=== PATIENT | male | born 1975 | race American Indian/Alaskan Native ===

== ENCOUNTER 2020-11-15 15:28 | Emergency (ER) | payer SELFPAY ==
[2020-11-15 15:51] VITALS: BP 134/69
[2020-11-15] MEDS ORDERED: ASPIRIN 325 MG TAB PO ONE (15:51)
--- NOTE | 2020-11-15 16:21 | XRay Report ---
CHEST 2 VIEWS INDICATION / CLINICAL INFORMATION: Chest pain. Heart fluttering and numbness down the right arm. COMPARISON: None available. FINDINGS: SUPPORT DEVICES: None. HEART / MEDIASTINUM: No significant abnormality. LUNGS / PLEURA: No significant pulmonary or pleural abnormality. No pneumothorax. ADDITIONAL FINDINGS: No significant additional findings. IMPRESSION: 1. No acute findings. Signer Name: Adeel Copeland MD Signed: 11/15/2020 4:17 PM Workstation Name: [id number]
[2020-11-15 16:32] LABS: Basophils % (Auto) 0.7 % (0.0-1.8); Eosinophils # (Auto) 0.3 K/mm3 (0.0-0.4); Eosinophils % (Auto) 5.1 % (0.0-4.3); Hematocrit 46.6 % (35.5-45.6); Lymphocytes # (Auto) 1.7 K/mm3 (1.2-5.4); Lymphocytes % (Auto) 24.5 % (13.4-35.0); Mean Corpuscular HGB Conc 34 % (32-34); Mean Corpuscular Volume 99 fl (84-94); Monocytes # (Auto) 0.6 K/mm3 (0.0-0.8); Monocytes % (Auto) 8.2 % (0.0-7.3); Platelet Count 238 K/mm3 (140-440); Red Blood Count 4.71 M/mm3 (3.65-5.03); Red Cell Distribution Width 13.2 % (13.2-15.2)
[2020-11-15 17:33] LABS: Alanine Aminotransferase 27 units/L (7-56); Albumin 3.9 g/dL (3.9-5); BUN/Creatinine Ratio 10; Blood Urea Nitrogen 10 mg/dL (9-20); Calcium 8.5 mg/dL (8.4-10.2); Hemolysis Index 18
--- NOTE | 2020-11-16 10:21 | Electrocardiograph Report ---
[facility] Test Date: 2020-11-15 Test Time: 15:56:33 Pat Name: LAURENT IQBAL Department: Room: Gender: M Nut Tightener: JOSÉ : 1975 Requested By: LISSETTE WARD Order Number: [id number] Reading MD: Anjel Ko Measurements Intervals [place] Rate: 79 P: 47 HI: 167 QRS: -8 QRSD: 84 T: -13 QT: 349 QTc: 399 Interpretive Statements Sinus rhythm No previous ECG available for comparison Electronically Signed On 11-16-2020 10:21:03 EDT by Anjel Ko
== END 2020-11-15 18:30 | disposition left against medical advice (07) ==
LOC: ED 15:28
DX: R20.0 Anesthesia of skin (principal); Z53.21 Procedure and treatment not carried out due to patient leaving prior to being seen by health care provider
CPT/HCPCS: 36415; 71046; 80053; 84484; 85025; 93005

== ENCOUNTER 2021-01-04 09:01 | Observation (INO) | payer OTHER ==
--- NOTE | 2021-01-04 09:28 | Emergency Department Report ---
HPI - General Chief Complaint: Chest Pain Time Seen by Provider: 01/04/21 09:09 - [facility] HPI: Room 18 The patient is a 45-year-old male present with a chief complaint of chest tightness and left-sided numbness. The patient states he awakened this morning with tightness in his left neck and chest. The patient states he had an appointment to see an orthopedic surgeon today in reference to his previous left lower extremity injury. The patient states about driving to the hospital he began to notice tingling and numbness on his left side including the left arm left trunk and left thigh. Patient complains of weakness on the left side as well. 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 The patient was transported to the ED by EMS ED Past Medical Hx - Past Medical History Hx Hypertension: Yes Hx Psychiatric Treatment: (anxiety) - Surgical History Hx Cholecystectomy: Yes Hx Appendectomy: Yes Additional Surgical History: right eye - Family History Family history: no significant - Social History Smoking Status: Current Some Day Smoker (Cigars) Substance Use Type: None (Denies illicit drug use), Alcohol (Frequently) ED Review of Systems ROS: Stated complaint: CHEST PAIN Other details as noted in HPI Constitutional: no symptoms reported Eyes: denies: eye pain ENT: denies: throat pain Respiratory: no symptoms reported Cardiovascular: chest pain Endocrine: no symptoms reported Gastrointestinal: denies: abdominal pain Genitourinary: denies: dysuria Musculoskeletal: arthralgia Neurological: weakness, paresthesias. denies: headache Physical Exam - Physical Exam Vital Signs: Vital Signs 01/04/21 01/04/21 09:05 09:15 Temperature 98.3 F Pulse Rate 74 73 Respiratory 18 14 Rate Blood Pressure 126/74 126/70 O2 Sat by Pulse 100 97 Oximetry Physical Exam: GENERAL: The patient is well-developed well-nourished male lying on stretcher not appearing to be in acute distress. [] HEENT: Normocephalic. Atraumatic. Extraocular motions are intact. Patient has moist mucous membranes. NECK: Supple. Trachea midline CHEST/LUNGS: Clear to auscultation. There is no respiratory distress noted. HEART/CARDIOVASCULAR: Regular. There is no tachycardia. There is no gallop rub or murmur. ABDOMEN: Abdomen is soft, nontender. Patient has normal bowel sounds. There is no abdominal distention. SKIN: There is no rash. There is no edema. There is no diaphoresis. NEURO: The patient is awake, alert, and oriented. The patient is cooperative. The patient has no focal neurologic deficits. The patient has normal speech. Cranial nerves II through XII grossly intact. Patient complains of left-sided numbness. Patient is able to hold either upper extremity at 45 degree angle for 10-second count without drifting to the bed. Patient is unable to hold either leg at 30 degree angle for 5-second count and he attributes this to pain in both of his knees. GCS 15 MUSCULOSKELETAL: There is no evidence of acute injury. ED Course Vital Signs 01/04/21 01/04/21 09:05 09:15 Temperature 98.3 F Pulse Rate 74 73 Respiratory 18 14 Rate Blood Pressure 126/74 126/70 O2 Sat by Pulse 100 97 Oximetry - Consultations Consultation #1: 01/04/21 10:25 Case discussed with telemetry neurology-no TPA. Likely stroke mimic ED Medical Decision Making - Lab Data Result diagrams: 01/04/21 09:27 01/04/21 09:27 - EKG Data -: EKG Interpreted by Me EKG shows normal: sinus rhythm Rate: normal - EKG Data When compared to previous EKG there are: previous EKG unavailable Interpretation: unchanged when compared t (11/15/2020), nonspecific ST-T wave kamila (T wave inversions in leads III and aVF) - Radiology Data Radiology results: report reviewed (CT head, chest x-ray), image reviewed (CT head, chest x-ray) interpreted by me: Chest x-ray-no definite focal infiltrates, no pneumothorax. No foreign body seen [facility] [address] [place] [address] Cat Scan Report Signed Patient: LAURENT IQBAL II MR#: [id number] 03 : 1975 Acct:[id number] Age/Sex: 45 / M ADM Date: 01/04/21 Loc: ED Attending Dr: Ordering Physician: ANITA ESPINAL MD Date of Service: 01/04/21 Procedure(s): CT head/brain wo con Accession Number(s): [id number] cc: ANITA ESPINAL MD CT BRAIN: 01/04/2021 INDICATION / CLINICAL INFORMATION: Left-sided numbness and weakness. COMPARISON: None available. FINDINGS: BRAIN/INTRACRANIAL STRUCTURES: Unenhanced CT images of the brain demonstrate no evidence of acute intracranial abnormality. Ventricles and sulci are normal in size and shape. There is no evidence of large vessel territory ischemic injury, hemorrhage, or mass. There are no abnormal extra-axial fluid collections. EXTRACRANIAL STRUCTURES: Unremarkable. IMPRESSION: No acute abnormality. All CT scans at this location are performed using dose reduction to ALARA by means of automated exposure control. Signer Name: Barron Dos Santos MD Signed: 01/04/2021 10:11 AM Workstation Name: [id number] Transcribed By: AO Dictated By: Barron Dos Santos MD Electronically Authenticated By: Barron Dos Santos MD Signed Date/Time: 01/04/21 1011 DD/ 1003 TD/TT: Print Cancel [facility] [address] [place] [address] XRay Report Signed Patient: LAURENT IQBAL II MR#: [id number] [birth year] : 1975 Acct:[id number] Age/Sex: 45 / M ADM Date: 01/04/21 Loc: ED Attending Dr: Ordering Physician: ANITA ESPINAL MD Date of Service: 01/04/21 Procedure(s): XR chest 1V ap Accession Number(s): [id number] cc: ANITA ESPINAL MD Fluoro Time In Minutes: CHEST 1 VIEW 01/04/2021 9:05 AM INDICATION / CLINICAL INFORMATION: chest pain. COMPARISON: 11/15/20 FINDINGS: SUPPORT DEVICES: None. HEART / MEDIASTIN UM: No significant abnormality. LUNGS / PLEURA: No significant pulmonary or pleural abnormality. No pneumothorax. ADDITIONAL FINDINGS: No significant additional findings. IMPRESSION: 1. No acute findings. No change. Signer Name: Adeel Copeland MD Signed: 01/04/2021 10:08 AM Workstation Name: [id number] Transcribed By: DT Dictated By: Víctor Copeland MD Electronically Authenticated By: Víctor Copeland MD Signed Date/Time: 01/04/21 1008 DD/ 1008 TD/TT: Print Cancel - Differential Diagnosis CVA, TIA, ACS, pericarditis, GERD Critical care attestation.: If time is entered above; I have spent that time in minutes in the direct care of this critically ill patient, excluding procedure time. ED Disposition Clinical Impression: Chest pain, Left sided numbness Disposition: OP ADMIT IP TO THIS HOSP Is pt being admited?: Yes Does the pt Need Aspirin: Yes Condition: Fair Instructions: Nonspecific Chest Pain, Adult Time of Disposition: 10:34 (Hospitalist paged (Dr Martinez)) Heart Score - HEART Score History: Moderately suspicious EKG: Non-specific Age: < 45 Risk factors: > 3 risk factors or hx of atherosclerotic disease Troponin: < normal limit HEART Score: 4 - EKG Read Time Time EKG Completed: 09:58 EKG Read Time: 10:01
[2021-01-04] MEDS ORDERED: fentaNYL 100 MCG/2 ML INJ IV ONE ×2 (09:40→10:28)
[2021-01-04] MEDS ORDERED: ONDANSETRON 4 MG/2 ML INJ IV ONE (09:40)
[2021-01-04 09:42] LABS: Hematocrit 45.4 % (35.5-45.6); Hemoglobin 15.2 gm/dl (11.8-15.2); Mean Corpuscular HGB Conc 34 % (32-34); Mean Corpuscular Volume 100 fl (84-94); Platelet Count 211 K/mm3 (140-440); Red Blood Count 4.55 M/mm3 (3.65-5.03); Red Cell Distribution Width 13.2 % (13.2-15.2)
[2021-01-04 09:52] LABS: INR 0.96 (0.87-1.13)
[2021-01-04 09:53] LABS: Partial Thromboplastin Time 27.6 Sec. (24.2-36.6); Thrombin Time 16.3 Sec. (15.1-19.6)
[2021-01-04 10:07] LABS: Creatine Kinase MB 1.8 ng/mL (0.0-4.0)
[2021-01-04 10:08] LABS: Alanine Aminotransferase 21 units/L (7-56); Albumin 3.3 g/dL (3.9-5); BUN/Creatinine Ratio 7; Blood Urea Nitrogen 6 mg/dL (9-20); Calcium 8.5 mg/dL (8.4-10.2); Hemolysis Index 10
--- NOTE | 2021-01-04 10:13 | XRay Report ---
CHEST 1 VIEW 01/04/2021 9:05 AM INDICATION / CLINICAL INFORMATION: chest pain. COMPARISON: 11/15/20 FINDINGS: SUPPORT DEVICES: None. HEART / MEDIASTINUM: No significant abnormality. LUNGS / PLEURA: No significant pulmonary or pleural abnormality. No pneumothorax. ADDITIONAL FINDINGS: No significant additional findings. IMPRESSION: 1. No acute findings. No change. Signer Name: Adeel Copeland MD Signed: 01/04/2021 10:08 AM Workstation Name: [id number]
--- NOTE | 2021-01-04 10:15 | Cat Scan Report ---
CT BRAIN: 01/04/2021 INDICATION / CLINICAL INFORMATION: Left-sided numbness and weakness. COMPARISON: None available. FINDINGS: BRAIN/INTRACRANIAL STRUCTURES: Unenhanced CT images of the brain demonstrate no evidence of acute int racranial abnormality. Ventricles and sulci are normal in size and shape. There is no evidence of large vessel territory ischemic injury, hemorrhage, or mass. There are no abn ormal extra-axial fluid collections. EXTRACRANIAL STRUCTURES: Unremarkable. IMPRESSION: No acute abnormality. All CT scans at this location are performed using dose reduction to ALARA by means of automated expos ure control. Signer Name: Barron Dos Santos MD Signed: 01/04/2021 10:11 AM Workstation Name: [id number]
[2021-01-04] MEDS ORDERED: ASPIRIN 325 MG TAB PO ONE (10:28)
[2021-01-04] MEDS ORDERED: NITROGLYCERIN 2% OINT 1 GM TP ONE (10:28)
--- NOTE | 2021-01-04 10:41 | History and Physical Report ---
History of Present Illness Date of examination: 01/04/21 Date of admission: 01/04/2021 Chief complaint: Chest pain, left shoulder pain tingling and numbness Generalized body pain since morning History of present illness: 45-year-old morbidly obese -[place] male patient with significant past medical history of hypertension generalized anxiety presented to the emergency room with left-sided chest pain and left shoulder pain and numbness starting from this morning after he woke up from sleep. Patient reports that he has an appointment to see orthopedic surgeon Dr. Baldwin for his left lower extremity injury Patient also complains of some tingling and numbness of his left side including his left arm and trunk and lower extremity Complains of mild weakness of the left side, Telemetry neurologist evaluated the patient And feels that his symptoms are not consistent with an resumed diagnosis of stroke. I evaluated patient patient complains of left shoulder pain left-sided chest pain and generalized anxiety Patient has significant past medical history of hypertension anxiety cholecystectomy appendectomy and some eye surgery Past History Past Medical History: hypertension, other (Anxiety) Past Surgical History: appendectomy, cholecystectomy, Other (Eye surgery) Social history: smoking, alcohol abuse. denies: other Family history: hypertension Medications and Allergies Allergies Allergy/AdvReac Type Severity Reaction Status Date / Time IV dye Allergy Anaphylaxis Uncoded 11/15/20 15:48 Review of Systems Constitutional: fatigue, weakness, no weight loss, no weight gain Ears, nose, mouth and throat: no nasal congestion, no nasal discharge Cardiovascular: chest pain, lightheadedness, shortness of breath, no orthopnea, no palpitations Respiratory: no cough, no hemoptysis Gastrointestinal: no abdominal pain, no nausea, no vomiting Genitourinary Male: no dysuria, no hematuria Musculoskeletal: arm numbness/tingling, myalgias Integumentary: no rash, no lesions Neurological: parathesias, numbness, tingling, no seizures, no syncope Psychiatric: anxiety, no depression Endocrine: no cold intolerance, no heat intolerance Hematologic/Lymphatic: no easy bruising, no easy bleeding Allergic/Immunologic: no urticaria, no allergic rhinitis Exam - Constitutional Vitals: Temp Pulse Resp BP Pulse Ox 98.3 F 73 14 126/70 97 01/04/21 09:05 01/04/21 09:15 01/04/21 09:15 01/04/21 09:15 01/04/21 09:15 General appearance: Present: no acute distress, well-nourished, obese - EENT Eyes: Present: PERRL, EOM intact - Neck Neck: Present: supple, normal ROM - Respiratory Respiratory effort: normal Respiratory: bilateral: diminished, negative: rales, rhonchi, wheezing - Cardiovascular Rhythm: regular Heart Sounds: Present: S1 & S2 - Extremities Extremities: no ischemia, No edema - Abdominal General gastrointestinal: Present: soft, non-tender, non-distended, normal bowel sounds - Integumentary Integumentary: Present: clear, warm - Musculoskeletal Musculoskeletal: strength equal bilaterally, generalized weakness - Psychiatric Psychiatric: appropriate mood/affect, cooperative - Neurologic Neurologic: CNII-XII intact, moves all extremities HEART Score - HEART Score EKG: Non-specific Age: < 45 Risk factors: > 3 risk factors or hx of atherosclerotic disease Troponin: Troponin T < 0.010 ng/mL (0.00-0.029) 01/04/21 09:27 Troponin: < normal limit Results - Labs CBC & Chem 7: 01/04/21 09:27 01/04/21 09:27 Labs: Abnormal lab results 01/04/21 01/04/21 Range/Units 09:27 09:27 MCV 100 H (84-94) fl MCH 33 H (28-32) pg Sodium 136 L (137-145) mmol/L BUN 6 L (9-20) mg/dL Glucose 118 H (75-100) mg/dL Total Protein 5.2 L (6.3-8.2) g/dL Albumin 3.3 L (3.9-5) g/dL Assessment and Plan --Atypical chest pain; Rule out acute coronary syndrome Serial cardiac enzymes x2 - negative Echocardiogram for LV function ejection fraction Aspirin, beta-blockers, nitrates statins, If symptoms do not improve request stress test Probably outpatient as stress test is not done during the weekend --Left shoulder and left arm tingling and numbness; Telemetry neurologist evaluated the patient, Feels that the symptoms are not consistent with stroke However we will closely monitor neuro symptoms And plan neuro work-up if needed --Morbid obesity; BMI 40.5 Advised diet modification exercise as tolerated weight reduction --Ongoing tobacco use; Smoking cessation counseling done, advised to quit tobacco use Nicotine patch as needed --Lower extremity pain; patient is scheduled to see orthopedic surgeon Dr. Denny Baldwin was consulted by the ER physician closely monitor --Mild malnutrition/hypoalbuminemia Nutrition supplements and nutrition consult if needed DVT prophylaxis; Lovenox Closely monitor patient and adjust management as needed Plan of care reviewed with the patient and his nurse Possible discharge in 1 to 2 days if stable
[2021-01-04 10:54] LABS: Total Cells Counted 100
[2021-01-04 10:55] LABS: Platelet Estimate Consistent w Auto; RBC Morphology Normal
[2021-01-04] MEDS ORDERED: NITROGLYCERIN 0.4 MG TAB SUBL SL PRN (13:28)
[2021-01-04] MEDS ORDERED: ACETAMINOPHEN 325 MG TAB PO PRN (14:00)
[2021-01-04 14:15] LABS: Creatine Kinase MB 1.6 ng/mL (0.0-4.0)
[2021-01-04 14:16] LABS: HDL Cholesterol 40 mg/dL (40-59); LDL Cholesterol,Direct 57 mg/dL (50-130)
--- NOTE | 2021-01-04 16:02 | Emergency Department Report ---
Blank Doc - Documentation Documentation: [facility] Consult Note # Demographics Consult Type: Acute Stroke Level 1 (0-4.5 hrs) Patient Location: Emergency Room First Name: Mickey Last Name: Sundeep Date of : 1975 Age: 45 Gender: Male Time of Initial Page ( Time): 01/04/2021, 10:19 Time of Return Call ( Time): 01/04/2021, 10:19 # HPI History: 45yo M has left sided numbness after being woken from sleep with left arm shooting pain and electric shock sensation. left hand felt numb while he was driving to the hospital. pt reproting svere apin as his main complaing. # Scores Time of exam and NIHSS (): 01/04/2021, 10:23 Level of Consciousness 1a: [0] = Alert; keenly responsive LOC Questions 1b: [0] = Answers both questions correctly LOC Commands 1c: [0] = Performs both tasks correctly Best Gaze 2: [0] = Normal Visual 3: [0] = No visual loss Facial Palsy 4: [0] = Normal symmetrical movements Motor Arm Left 5a: [1] = Drift Motor Arm Right 5b: [0] = No drift Motor Leg Left 6a: [3] = No effort against gravity Motor Leg Right 6b: [0] = No drift Limb Ataxia 7: [0] = Absent Sensory 8: [1] = [id number] sensory loss Best Language 9: [0] = No aphasia Dysarthria 10: [0] = Normal Extinction and Inattention 11: [0] = No abnormality NIHSS Total: 5 # Exam Motor: pain limited exam on the left, will not give effort on the left due to this pain. # Assessment Impression: left sided pain. degree of pain should not be caused from stroke, alternate diagnosis suspected. # Plan Thrombolytic/Intervention: NOT IV Thrombolysis or IA Intervention candidate Thrombolytic/Intraarterial Exclusion: IV thrombolytic and IA intervention considered but not recommended as this patient's symptoms are not clinically consistent with an assumed diagnosis of stroke Other: I have discussed my recommendations with the referring provider # Logistics Telemedicine: Interactive 2 way audio and visual telecommunication technology was utilized during this visit
[2021-01-04] MEDS ORDERED: HYDROmorphone 2 MG/1 ML INJ IV ONE (16:51)
[2021-01-04] MEDS: MORPHINE 2 MG/1 ML INJ IV PRN (19:51)
[2021-01-04] MEDS: carvediloL 3.125 MG TAB PO SCH (21:53)
[2021-01-04] MEDS: FAMOTIDINE 20 MG TAB PO SCH (21:53)
[2021-01-04] MEDS: DOCUSATE SODIUM 100 MG CAP PO SCH (21:53)
[2021-01-05] MEDS ORDERED: QUEtiapine 25 MG TAB PO ONE (00:15)
[2021-01-05] MEDS ORDERED: LORazepam 2 MG/ML VIAL IV ONE (03:45)
[2021-01-05] MEDS: FAMOTIDINE 20 MG TAB PO SCH (11:12)
[2021-01-05] MEDS: carvediloL 3.125 MG TAB PO SCH (11:12)
[2021-01-05] MEDS: DOCUSATE SODIUM 100 MG CAP PO SCH (11:12)
[2021-01-05] MEDS: MORPHINE 2 MG/1 ML INJ IV PRN (11:15)
[2021-01-05 11:58] VITALS: BP 144/88
--- NOTE | 2021-01-07 11:39 | Electrocardiograph Report ---
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
== END 2021-01-05 15:45 | disposition left against medical advice (07) ==
LOC: ED 09:01 → 4A 10:35
PROVIDERS: ADMIT Internal Medicine; ATTEND Internal Medicine
DX: R07.89 Other chest pain (principal); M25.512 Pain in left shoulder; E66.01 Morbid (severe) obesity due to excess calories; F17.210 Nicotine dependence, cigarettes, uncomplicated; E46 Unspecified protein-calorie malnutrition; E88.09 Other disorders of plasma-protein metabolism, not elsewhere classified; I10 Essential (primary) hypertension; R51.9 Headache, unspecified; F41.9 Anxiety disorder, unspecified; Z68.41 Body mass index [BMI] 40.0-44.9, adult; Z90.49 Acquired absence of other specified parts of digestive tract; Z79.899 Other long term (current) drug therapy; Z98.890 Other specified postprocedural states
CPT/HCPCS: 36415; 70450; 71045; 80053; 80061; 82550; 82553; 84484; 85025; 85610; 85670; 85730; 96374; 96375; 96376; 99285; 99406; G0378; J1170; J2060; J2270; J2405; J3010; 85007; 93005

== ENCOUNTER 2021-01-21 12:18 | Emergency (ER) | payer SELFPAY ==
[2021-01-21] MEDS ORDERED: ASPIRIN 325 MG TAB PO ONE (12:28)
[2021-01-21 12:29] VITALS: BP 144/95
[2021-01-21 13:14] LABS: Basophils # (Auto) 0.1 K/mm3 (0.0-0.1); Eosinophils # (Auto) 0.4 K/mm3 (0.0-0.4); Eosinophils % (Auto) 4.8 % (0.0-4.3); Hematocrit 46.1 % (35.5-45.6); Hemoglobin 15.6 gm/dl (11.8-15.2); Lymphocytes # (Auto) 1.7 K/mm3 (1.2-5.4); Lymphocytes % (Auto) 23.2 % (13.4-35.0); Mean Corpuscular HGB Conc 34 % (32-34); Mean Corpuscular Volume 99 fl (84-94); Monocytes # (Auto) 0.6 K/mm3 (0.0-0.8); Monocytes % (Auto) 8.2 % (0.0-7.3); Platelet Count 245 K/mm3 (140-440); Red Blood Count 4.67 M/mm3 (3.65-5.03)
[2021-01-21 13:34] LABS: Alanine Aminotransferase 26 units/L (7-56); Albumin 3.9 g/dL (3.9-5); BUN/Creatinine Ratio 7; Blood Urea Nitrogen 6 mg/dL (9-20); Calcium 8.8 mg/dL (8.4-10.2); Hemolysis Index 14
--- NOTE | 2021-01-21 14:04 | XRay Report ---
CHEST 2 VIEWS INDICATION: Chest pain. COMPARISON: 01/04/2021 FINDINGS: Support devices: None. Heart: Within normal limits. Lungs/pleura: No acute air space or interstitial disease. No pneumothorax. Additional findings: None. IMPRESSION: No acute findings. Unremarkable chest films. Signer Name: Yandel Giron Jr, MD Signed: 01/21/2021 2:00 PM Workstation Name: [id number]
--- NOTE | 2021-01-22 10:09 | Electrocardiograph Report ---
[facility] Test Date: 2021-01-21 Test Time: 12:21:54 Pat Name: LAURENT IQBAL Department: Room: Gender: M Risk Specialist: LISBETH : 1975 Requested By: ED DOC Order Number: [id number] Reading MD: Venkatesh Siu Measurements Intervals [place] Rate: 73 P: 0 MD: 172 QRS: 8 QRSD: 95 T: 14 QT: 369 QTc: 406 Interpretive Statements Sinus rhythm nonspecific st-t Compared to ECG 01/04/2021 09:58:31 Electronically Signed On 01-22-2021 10:09:09 EDT by Venkatesh Siu
== END 2021-01-21 13:50 | disposition left against medical advice (07) ==
LOC: ED 12:18
DX: R07.9 Chest pain, unspecified (principal); R42 Dizziness and giddiness; Z53.21 Procedure and treatment not carried out due to patient leaving prior to being seen by health care provider
CPT/HCPCS: 36415; 71046; 80053; 84484; 85025; 93005